=== PATIENT | female | born 1990 | race Caucasian/White ===

== ENCOUNTER 2017-10-22 07:14 | Day surgery (SDC) | payer OTHER ==
[2017-10-22] MEDS ORDERED: MIDAZOLAM 1 MG/ML 2 ML INJ (08:24)
[2017-10-22] MEDS ORDERED: FENTAnyl 50 MCG/ML VIAL (08:24)
[2017-10-22] MEDS ORDERED: PROPOFOL 20 ML (08:24)
[2017-10-22] MEDS ORDERED: HYDROmorphONE (0.2 MG/ML) 10ML SYG IV ×3 (09:00)
[2017-10-22] MEDS ORDERED: FENTAnyl 50 MCG/ML VIAL IV ×3 (09:00)
[2017-10-22] MEDS ORDERED: morphine (1 MG/ML) 10ML SYRINGE IV ×3 (09:00)
[2017-10-22] MEDS ORDERED: EPHEDrine SULFATE 50 MG/5 ML SYG IV (09:00)
[2017-10-22] MEDS ORDERED: METOCLOPRAMIDE 10 MG INJ IV (09:00)
[2017-10-22] MEDS ORDERED: DIPHENHYDRAMINE 50 MG INJ IV (09:00)
[2017-10-22] MEDS ORDERED: OXYCODONE/ACETAMINOPHEN (5/325) TAB PO (09:00)
[2017-10-22] MEDS ORDERED: SUGAMMADEX SODIUM 200 MG/2 ML VIAL IV (09:36)
[2017-10-22] MEDS ORDERED: ROCURONIUM 50 MG INJ (09:36)
[2017-10-22] MEDS ORDERED: KETOROLAC 30 MG INJ (09:36)
[2017-10-22] MEDS ORDERED: DEXAMETHASONE 4 MG/ML 1 ML INJ (09:36)
[2017-10-22] MEDS ORDERED: CEFAZOLIN 1 GM INJ (09:36)
[2017-10-22] MEDS ORDERED: METOCLOPRAMIDE 10 MG INJ (09:36)
[2017-10-22] MEDS ORDERED: ONDANSETRON 4 MG INJ (09:36)
[2017-10-22] MEDS: LIDOCAINE 1%/EPI 30 ML INJ (09:39)
[2017-10-22] MEDS ORDERED: BACITRACIN 0.9 GM OINT (09:58)
[2017-10-22] MEDS ORDERED: MEPERIDINE 100 MG INJ (10:04)
[2017-10-22] MEDS: MEPERIDINE 25 MG INJ IV (10:47)
[2017-10-22] MEDS: ONDANSETRON 4 MG INJ IV (10:47)
== END 2017-10-22 11:25 | disposition home or self-care (01) ==
LOC: SDS 07:14
DX: Q18.0 Sinus, fistula and cyst of branchial cleft (principal)
CPT/HCPCS: 42810; 88304